=== PATIENT | male | born 1985 | race Caucasian/White ===

== ENCOUNTER 2017-12-10 19:59 | Emergency (ER) | payer SELFPAY ==
[~2017-12-10] VITALS: Ht 170.2 cm; Wt 83.8 kg
[2017-12-10 20:50] VITALS: BP 150/89; PULSE 92; RESP 18; TEMP 98.7; O2SAT 99
--- NOTE | 2017-12-10 21:57 | PD ---
HPI Chief Complaint: General Weakness Time Seen by Provider: 21:56 Travel History International Travel<30 days: No Contact w/Intl Traveler<30days: No Traveled to known affect area: No History of Present Illness HPI 32-year-old male came to the emergency room with history of not feeling well, dizzy, lightheaded, generalized weakness for past 10 months. 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 He does not drink alcohol even. All his symptoms started since. He goes to [facility] and has mentioned to them about this but he has been told that he is doing okay. His vital signs are stable. Patient appears anxious and depressed as he is telling me all this. [facility] Past Medical History Narrative Medical List of his past medical, surgical, social and family history is reviewed from the nursing note. Social History Tobacco Use: Yes (Vape) Allergies-Medications (Allergen,Severity, Reaction): Coded Allergies: Penicillins (Verified Allergy, Severe, CHILDHOOD, 12/10/17) Comments List of his allergies reviewed from the nursing note. Reported Meds & Prescriptions Reported Meds & Active Scripts Active Reported Vistaril (Hydroxyzine Pamoate) 50 Mg Cap 50 Mg PO DAILY Gabapentin 400 Mg Cap 400 Cap PO TID Narrative Medication List of his allergies reviewed from the nursing note. Review of Systems Except as stated in HPI: all other systems reviewed are Neg HENT: Positive: Lightheadedness Psychiatric: Positive: Anxiety, Depression Physical Exam Narrative GENERAL: Awake, alert, anxious, depressed SKIN: Focused skin assessment warm/dry. HEAD: Atraumatic. Normocephalic. EYES: Pupils equal and round. No scleral icterus. No injection or drainage. ENT: No nasal bleeding or discharge. Mucous membranes pink and moist. NECK: Trachea midline. No JVD. CARDIOVASCULAR: Regular rate and rhythm. No murmur appreciated. RESPIRATORY: No accessory muscle use. Clear to auscultation. Breath sounds equal bilaterally. GASTROINTESTINAL: Abdomen soft, non-tender, nondistended. Hepatic and splenic margins not palpable. MUSCULOSKELETAL: No obvious deformities. No clubbing. No cyanosis. No edema. NEUROLOGICAL: Awake and alert. No obvious cranial nerve deficits. Motor grossly within normal limits. Normal speech. PSYCHIATRIC: Seems depressed. Data Data Last Documented VS Vital Signs Date Time Temp Pulse Resp B/P (MAP) Pulse Ox O2 Delivery O2 Flow Rate FiO2 12/11/17 00:26 98.1 83 16 127/92 (104) 98 12/10/17 23:08 Room Air Orders Orders Electrocardiogram (12/10/17 22:16) Basic Metabolic Panel (Bmp) (12/10/17 22:16) Complete Blood Count With Diff (12/10/17 22:16) Magnesium (Mg) (12/10/17 22:16) Prothrombin Time / Inr (Pt) (12/10/17 22:16) Troponin I (12/10/17 22:16) Chest, Single Ap (12/10/17 22:16) Ecg Monitoring (12/10/17 22:16) Bilateral Bp Monitoring (12/10/17 22:16) Iv Access Insert/Monitor (12/10/17 22:16) Oximetry (12/10/17 22:16) Oxygen Administration (12/10/17 22:16) Sodium Chloride 0.9% Flush (Ns Flush) (12/10/17 22:30) Ed Discharge Order (12/10/17 23:51) Labs Laboratory Tests Test 12/10/17 23:00 White Blood Count 11.9 TH/MM3 Red Blood Count 4.79 MIL/MM3 Hemoglobin 15.3 GM/DL Hematocrit 43.8 % Mean Corpuscular Volume 91.5 FL Mean Corpuscular Hemoglobin 31.9 PG Mean Corpuscular Hemoglobin Concent 34.9 % Red Cell Distribution Width 11.7 % Platelet Count 192 TH/MM3 Mean Platelet Volume 9.9 FL Neutrophils (%) (Auto) 71.8 % Lymphocytes (%) (Auto) 22.0 % Monocytes (%) (Auto) 5.3 % Eosinophils (%) (Auto) 0.3 % Basophils (%) (Auto) 0.6 % Neutrophils # (Auto) 8.6 TH/MM3 Lymphocytes # (Auto) 2.6 TH/MM3 Monocytes # (Auto) 0.6 TH/MM3 Eosinophils # (Auto) 0.0 TH/MM3 Basophils # (Auto) 0.1 TH/MM3 CBC Comment DIFF FINAL Differential Comment Prothrombin Time 10.7 SEC Prothromb Time International Ratio 1.1 RATIO Blood Urea Nitrogen 10 MG/DL Creatinine 1.10 MG/DL Random Glucose 104 MG/DL Calcium Level 9.1 MG/DL Magnesium Level 2.0 MG/DL Sodium Level 137 MEQ/L Potassium Level 3.4 MEQ/L Chloride Level 103 MEQ/L Carbon Dioxide Level 27.3 MEQ/L Anion Gap 7 MEQ/L Estimat Glomerular Filtration Rate 77 ML/MIN Troponin I LESS THAN 0.02 NG/ML MDM Medical Decision Making Medical Screen Exam Complete: Yes Emergency Medical Condition: Yes Medical Record Reviewed: Yes Interpretation(s) Twelve-lead EKG was reviewed by me. Normal sinus rhythm, normal axis, nonspecific ST-T wave changes. Heart rate of 85 bpm. Differential Diagnosis Dehydration, Abnormalities, anxiety, depression Narrative Course 11:56 PM blood test results of back and within acceptable limit. I will discharge him home. I've asked him to follow up with his [facility] since he does not have a primary care. Procedures EKG Prior to Arrival: No Diagnosis Primary Impression: Anxiety Referrals: [facility] Primary Care Physician Additional Instructions: Return to the ER if condition worsens or any other new concerns. Otherwise follow-up with your primary care physician. He could go to the [facility]. There had address been provided and the discharge instruction. Med/Other Pt SpecificInfo: No Change to Meds Disposition: 01 DISCHARGE HOME Condition: Stable Ranjeet Cornell MD Dec 10, 2017 21:57
[2017-12-10 22:15] VITALS: BP 158/97; PULSE 95; RESP 18; O2SAT 98
[2017-12-10] MEDS ORDERED: SODIUM CHLORIDE 0.9% FLUSH 10 ML FLUSH IVF PRN (22:30)
[2017-12-10 22:41] VITALS: O2SAT 98
--- NOTE | 2017-12-10 22:47 | RADRPT ---
EXAM DATE/TIME: 12/10/2017 22:32 [place] COMPARISON: No previous studies available for comparison. INDICATIONS : Chest pain. MEDICAL HISTORY : None. SURGICAL HISTORY : None. ENCOUNTER: Initial ACUITY: 1 day PAIN SCORE: 7/10 LOCATION: Bilateral chest FINDINGS: A single view of the chest demonstrates the lungs to be symmetrically aerated without evidence of mas s, infiltrate or effusion. The cardiomediastinal contours are unremarkable. Osseous structures are intact. CONCLUSION: No acute disease. Kan Matt MD on December 10, 2017 at 22:44 Board Certified Radiologist. This report was verified electronically.
[2017-12-10 23:08] VITALS: BP_SYST 145; BP_SYST 152; BP_DIAS 88; BP_DIAS 96; PULSE 90; RESP 16; O2SAT 98
[2017-12-10 23:17] LABS: AUTOMATED NEUTROPHIL # 8.6 TH/MM3 (1.8-7.7); BASOPHIL # 0.1 TH/MM3 (0-0.2); BASOPHIL % 0.6 % (0.0-2.0); EOSINOPHIL % 0.3 % (0.0-4.0); HEMATOCRIT 43.8 % (39.0-51.0); HEMOGLOBIN 15.3 GM/DL (13.0-17.0); LYMPHOCYTE # 2.6 TH/MM3 (1.0-4.8); MEAN CELL VOLUME 91.5 FL (80.0-100.0); MEAN CORPUSCULAR HEMOGLOBIN 31.9 PG (27.0-34.0); MEAN CORPUSCULAR HGB CONC 34.9 % (32.0-36.0); MEAN PLATELET VOLUME 9.9 FL (7.0-11.0); MONO % 5.3 % (0.0-8.0); MONOCYTE # 0.6 TH/MM3 (0-0.9); NEUT % 71.8 % (16.0-70.0); PLATELET COUNT 192 TH/MM3 (150-450); RED BLOOD COUNT 4.79 MIL/MM3 (4.50-5.90); RED CELL DISTRIBUTION WIDTH 11.7 % (11.6-17.2); WHITE BLOOD COUNT 11.9 TH/MM3 (4.0-11.0)
[2017-12-10 23:26] LABS: CHLORIDE 103 MEQ/L (98-107); SODIUM (NA) 137 MEQ/L (136-145)
[2017-12-10 23:28] LABS: CALCIUM 9.1 MG/DL (8.5-10.1)
[2017-12-10 23:29] LABS: BICARBONATE 27.3 MEQ/L (21.0-32.0); BLOOD UREA NITROGEN 10 MG/DL (7-18); GLUCOSE,RANDOM 104 MG/DL (74-106)
[2017-12-10 23:31] LABS: INTERNATIONAL NORMALIZED RATIO 1.1 RATIO; PROTHROMBIN TIME - PATIENT 10.7 SEC (9.8-11.6)
[2017-12-10 23:32] LABS: GLOMERULAR FILTRATION RATE 77 ML/MIN (>89)
[2017-12-10 23:37] LABS: TROPONIN I LESS THAN 0.02 NG/ML (0.02-0.05)
[2017-12-10] MEDS ORDERED: VIST50CA PO (23:42)
[2017-12-10] MEDS ORDERED: GABA400C5 PO (23:42)
[2017-12-11 00:26] VITALS: BP 127/92; TEMP 98.1
--- NOTE | 2017-12-11 18:30 | EKG ---
Date Performed: 12/10/2017 Time Performed: 22:27:07 PTAGE: 32 years EKG: Sinus rhythm NONSPECIFIC T-WAVE ABNORMALITY BORDERLINE ECG NO PREVIOUS TRACING DOCTOR: Hemanth Baker Interpretating Date/Time 12/11/2017 18:28:04
== END 2017-12-11 00:36 | disposition home or self-care (01) ==
LOC: PHED 19:59
DX: F41.9 Anxiety disorder, unspecified (principal); R53.81 Other malaise; R42 Dizziness and giddiness; R53.1 Weakness; R94.31 Abnormal electrocardiogram [ECG] [EKG]; Z72.0 Tobacco use
CPT/HCPCS: 71045; 80048; 83735; 84484; 85025; 85610; 93005; 99285